=== PATIENT | male | born 1965 | race Caucasian/White ===

== ENCOUNTER 2025-03-21 13:26 | Emergency (ER) | payer OTHER ==
[~2025-03-21] VITALS: Ht 177.8 cm; Wt 85.0 kg
[2025-03-21 13:31] VITALS: TEMP 36.7; O2SAT 98
[2025-03-21] MEDS: KETOROLAC 15MG/ML VIAL IM ONE (14:54)
[2025-03-21 15:20] VITALS: BP 126/74; PULSE 72; RESP 12; O2SAT 99
== END 2025-03-21 15:25 | disposition home or self-care (01) ==
LOC: ER 13:26
DX: M79.604 Pain in right leg (principal); R07.2 Precordial pain; E78.00 Pure hypercholesterolemia, unspecified; I10 Essential (primary) hypertension; V43.52XA Car driver injured in collision with other type car in traffic accident, initial encounter; Y92.410 Unspecified street and highway as the place of occurrence of the external cause; Y93.89 Activity, other specified; Y99.8 Other external cause status
CPT/HCPCS: 99284; 71045; 73562; 73590; 73610; 96372; J1885